=== PATIENT | male | born 1960 | race Caucasian/White ===

== ENCOUNTER 2016-06-17 12:18 | Emergency (ER) | payer BC ==
[~2016-06-17] VITALS: Ht 180.3 cm; Wt 101.3 kg
[2016-06-17 12:22] VITALS: TEMP 36.6; Ht 180.3 cm; Wt 101.3 kg
[2016-06-17] MEDS ORDERED: SODIUM CHLORIDE 0.9% 1000ML 1,000 ML IV STA (12:43)
--- NOTE | 2016-06-17 13:10 | DIAGNOSTIC IMAGING REPORT ---
CHEST ONE VIEW PORTABLE HISTORY: Short of breath. Atypical chest pain. COMPARISON: None. FINDINGS: The lungs are clear. Cardiac silhouette is normal in size. No pleural effusions. No pneumothorax. IMPRESSION: No acute process. Electronically signed by: Ivan Gannon M.D. 06/17/2016 1:08 PM Dictated Date/Time: 06/17/2016 1:07 PM
--- NOTE | 2016-06-17 13:21 | DIAGNOSTIC IMAGING REPORT ---
CT HEAD WITHOUT CONTRAST (CT) CLINICAL HISTORY: Dizziness COMPARISON STUDY: No previous studies for comparison. TECHNIQUE: Axial CT of the brain is performed from the vertex to the skull base. IV contrast was not administered for this examination. CT DOSE: 537.48 mGy.cm FINDINGS: No intra or extra-axial mass lesions are visualized. There is no CT evidence of acute cortical infarction. There is no evidence of midline shift. There is no acute hemorrhage. No calvarial fractures are visualized. There are minimal white matter hypodensities likely on a small vessel basis. There is no evidence of pathologic ventricular dilatation. There is no evidence of acute sinusitis IMPRESSION: No acute intracranial findings Electronically signed by: Tee Garzon M.D. 06/17/2016 1:19 PM Dictated Date/Time: 06/17/2016 1:18 PM
[2016-06-17 13:30] LABS: EOS % 2.7 %; HEMATOCRIT 43.1 % (42-52); LYMPH % 22.9 %; MEAN CELL VOLUME 87.1 fL (80-100); MEAN CORPUSCULAR HEMOGLOBIN 30.7 pg (25-34); MEAN CORPUSCULAR HGB CONC 35.3 g/dl (32-36); MEAN PLATELET VOLUME 10.7 fL (7.4-10.4); MONO % 7.2 %; NEUT % 66.2 %; PLATELET COUNT 187 K/uL (130-400); RED BLOOD COUNT 4.95 M/uL (4.7-6.1); WHITE BLOOD COUNT 5.12 K/uL (4.8-10.8)
[2016-06-17 13:31] LABS: BASO % 0.6 %; BASO ABS # 0.03 K/uL (0-0.2); COMPLETE YES; IG% 0.4 %; LYMPH ABS # 1.17 K/uL (1.2-3.4)
[2016-06-17 14:34] LABS: BLOOD UREA NITROGEN 17 mg/dl (7-18); BUN/CREATININE RATIO 13.2 (10-20); CALCIUM 8.4 mg/dl (8.5-10.1); CARBON DIOXIDE 24 mmol/L (21-32); CHLORIDE 109 mmol/L (98-107); CKMB/CK RATIO 0.8 (0-3.0); GLUCOSE 117 mg/dl (70-99); POTASSIUM 4.4 mmol/L (3.5-5.1); SODIUM 142 mmol/L (136-145)
[2016-06-17 15:03] VITALS: BP 152/100; PULSE 63; O2SAT 98
--- NOTE | 2016-06-17 19:04 | EMERGENCY ROOM VISIT NOTE ---
History Report prepared by Eidth: Tracy Benjamin Under the Supervision of: Dr. Salbador Anderson D.O. First contact with patient: 12:26 Chief Complaint: DIZZY Stated Complaint: DIZZINESS STIFNESS SHORTNESS OF BREATH History of Present Illness The patient is a 56 year old male who presents to the Emergency Room with complaints of a resolved episode of dizziness that occurred last evening around 1999 and lasted 10-15 seconds. He states that he had a weird feeling from his head down through his chest. The patient states that he had a similar episode occur one month ago. He states that with both episodes he developed bilateral arm and back stiffness and weakness. The patient states that with both episodes his hands were on his steering wheel, he developed the dizziness and noticed the stiffness afterwards. He states that he notices chest stiffness today as well around 0615, but is unsure if that was present last night after the dizziness episode. The patient describes his dizziness as a lightheadedness , but denies any room spinning sensation. The patient states that over the last four months he has become short of breath easily with exertion, but denies any chest pain with exertion. He denies any history of diabetes, hypertension, hyperlipidemia or previous MIs. The patient denies any difficulty ambulating. Pt denies headache, change in vision, fevers, chest pain, nausea, vomiting, diarrhea, pain with urination, and melena. Source of History: patient Onset: last evening around 1999 Position: other (global) Symptom Intensity: 10-15 seconds Quality: other (episode of dizziness) Timing: resolved Associated Symptoms: + SOB Note: Associated Symptoms: back and bilateral arm stiffness, chest stiffness, lightheadedness Review of Systems See HPI for pertinent positives & negatives. A total of 10 systems reviewed and were otherwise negative. Past Medical & Surgical Medical Problems: (1) Pneumonia Family History FH: cancer Social History Smoking Status: Never Smoker Smokeless Tobacco Use: No Alcohol Use: none Marital Status: Housing Status: lives with family Occupation Status: employed Current/Historical Medications No Active Prescriptions or Reported Meds Allergies Coded Allergies: No Known Allergies (Verified , 06/26/11) Physical Exam Vital Signs Date Time Temp Pulse Resp B/P Pulse Ox O2 Delivery O2 Flow Rate FiO2 06/17/16 15:03 63 18 152/100 98 Room Air 06/17/16 13:30 59 20 141/72 97 Room Air 06/17/16 13:10 63 06/17/16 12:31 69 16 160/98 06/17/16 12:22 36.6 80 16 161/91 96 Room Air Physical Exam GENERAL: Ambulates through hallway without difficulty, alert, well appearing, well nourished, no distress, non-toxic EYE EXAM: normal conjunctiva, PERRL and EOM's intact OROPHARYNX: no exudate, no erythema, lips, buccal mucosa, and tongue normal and mucous membranes are moist NECK: supple, no nuchal rigidity, no adenopathy, non-tender LUNGS: Clear to auscultation. Normal chest wall mechanics HEART: no murmurs, S1 normal and S2 normal ABDOMEN: abdomen soft, non-tender, normo-active bowel sounds, no masses, no rebound or guarding. BACK: Back is symmetrical on inspection and there is no deformity, no midline tenderness, no CVA tenderness. SKIN: no rashes and no bruising UPPER EXTREMITIES: upper extremities are grossly normal. Radial pulses are equal bilaterally. LOWER EXTREMITIES: No pitting edema. NEURO EXAM: Normal sensorium, cranial nerves II-XII grossly intact, normal speech, no weakness of arms, no weakness of legs. No drift. Finger to nose intact. Gross sensation intact. Rapid alternating movements of upper extremities intact. Medical Decision & Procedures ER Provider Diagnostic Interpretation: Xray results per the radiologist and my interpretation. Other results have been interpreted by the radiologist and reviewed by me. CT HEAD WITHOUT CONTRAST (CT) CLINICAL HISTORY: Dizziness COMPARISON STUDY: No previous studies for comparison. TECHNIQUE: Axial CT of the brain is performed from the vertex to the skull base. IV contrast was not administered for this examination. CT DOSE: 537.48 mGy.cm FINDINGS: No intra or extra-axial mass lesions are visualized. There is no CT evidence of acute cortical infarction. There is no evidence of midline shift. There is no acute hemorrhage. No calvarial fractures are visualized. There are minimal white matter hypodensities likely on a small vessel basis. There is no evidence of pathologic ventricular dilatation. There is no evidence of acute sinusitis IMPRESSION: No acute intracranial findings Electronically signed by: Tee Garzon M.D. 06/17/2016 1:19 PM Dictated Date/Time: 06/17/2016 1:18 PM CHEST ONE VIEW PORTABLE HISTORY: Short of breath. Atypical chest pain. COMPARISON: None. FINDINGS: The lungs are clear. Cardiac silhouette is normal in size. No pleural effusions. No pneumothorax. IMPRESSION: No acute process. Electronically signed by: Ivan Gannon M.D. 06/17/2016 1:08 PM Dictated Date/Time: 06/17/2016 1:07 PM Laboratory Results 06/17/16 13:02 Red Blood Count 4.95, Mean Corpuscular Volume 87.1, Mean Corpuscular Hemoglobin 30.7, Mean Corpuscular Hemoglobin Concent 35.3, Mean Platelet Volume 10.7, Neutrophils (%) (Auto) 66.2, Lymphocytes (%) (Auto) 22.9, Monocytes (%) (Auto) 7.2, Eosinophils (%) (Auto) 2.7, Basophils (%) (Auto) 0.6, Neutrophils # (Auto) 3.39, Lymphocytes # (Auto) 1.17, Monocytes # (Auto) 0.37, Eosinophils # (Auto) 0.14, Basophils # (Auto) 0.03 06/17/16 13:02 Test 06/17/16 13:02 06/17/16 14:53 White Blood Count 5.12 K/uL (4.8-10.8) Red Blood Count 4.95 M/uL (4.7-6.1) Hemoglobin 15.2 g/dL (14.0-18.0) Hematocrit 43.1 % (42-52) Mean Corpuscular Volume 87.1 fL (80-100) Mean Corpuscular Hemoglobin 30.7 pg (25-34) Mean Corpuscular Hemoglobin Concent 35.3 g/dl (32-36) Platelet Count 187 K/uL (130-400) Mean Platelet Volume 10.7 fL (7.4-10.4) Neutrophils (%) (Auto) 66.2 % Lymphocytes (%) (Auto) 22.9 % Monocytes (%) (Auto) 7.2 % Eosinophils (%) (Auto) 2.7 % Basophils (%) (Auto) 0.6 % Neutrophils # (Auto) 3.39 K/uL (1.4-6.5) Lymphocytes # (Auto) 1.17 K/uL (1.2-3.4) Monocytes # (Auto) 0.37 K/uL (0.11-0.59) Eosinophils # (Auto) 0.14 K/uL (0-0.5) Basophils # (Auto) 0.03 K/uL (0-0.2) RDW Standard Deviation 40.7 fL (36.4-46.3) RDW Coefficient of Variation 12.7 % (11.5-14.5) Immature Granulocyte % (Auto) 0.4 % Immature Granulocyte # (Auto) 0.02 K/uL (0.00-0.02) D-Dimer < 190 ug/L FEU (0-500) Anion Gap 9.0 mmol/L (3-11) Est Creatinine Clear Calc Drug Dose 75.1 ml/min Estimated GFR () 69.7 Estimated GFR (Non- 60.1 BUN/Creatinine Ratio 13.2 (10-20) Calcium Level 8.4 mg/dl (8.5-10.1) Total Creatine Kinase 220 U/L (39-308) Creatine Kinase MB 1.8 ng/ml (0.5-3.6) Creatine Kinase MB Ratio 0.8 (0-3.0) Chemistry Specimen Hemolysis Troponin I < 0.015 ng/ml (0-0.045) Laboratory results per my review. Medications Administered Medications (Trade) Dose Ordered Sig/Meme Route Start Time Stop Time Status Last Admin Dose Admin Sodium Chloride (Nss 1000ml) 1,000 ml @ 999 mls/hr Q1H1M STAT IV 06/17/16 12:43 06/17/16 13:43 DC 06/17/16 12:43 999 MLS/HR ECG Indication: other (dizziness) Rate (beats per minute): 64 Rhythm: sinus rhythm Findings: no ectopy, other (flipped T wave in lead 3, normal axis) Comparison ECG Date: no prior available ED Course ED COURSE: Vital signs were reviewed and showed hypertensive The patients medical record was reviewed The above diagnostic studies were performed and reviewed. ED treatments and interventions as stated above. 1228: The patient was evaluated in room C3. A complete history and physical examination was performed. 1243: Ordered Sodium Chloride 1000 ml @ 999 mls/hr IV. 1335: I reevaluated the patient and he is doing well. 1430: I had a prolonged conversation with the patient regarding his heart enzymes and how the results are not back yet. He is agreeable to stay until the first troponin comes back. It came back normal at this time. After extensive convincing, the patient allowed to have a repeat troponin drawn and states that we can call if it comes back positive. 1447: Upon reevaluation, the patient is resting comfortably. I told the patient that there is a 1-2% chance that this is his heart and he does not wish to stay for the results. I discussed my findings with the patient and he understands and agrees with the treatment plan. Based on the patients age, coexisting illnesses, exam and lab findings the decision to treat as an outpatient was made. The patient remained stable while under my care. The patient appeared well at the time of discharge. Medical Decision Differential diagnosis includes etiologies such as benign positional vertigo, dehydration, hypovolemia, anemia, tumor, infection, hypoglycemia, electrolyte abnormalities, cardiac sources, intracerebral event, toxicologic, neurologic, as well as others were entertained. Patient is a 56-year-old male who presents the ER for intermittent episodes of lightheadedness. He had one episode over a month ago and one last night. Following this episode he has felt tight in his upper extremities. He is concerned that he may be having a heart attack. He denies any exertional chest pain or new shortness of breath. No history of hypertension, hyperlipidemia, CAD or previous UT. He has no risk factors for PE. D-dimer was negative. Troponin was was negative 2. CT head was negative. EKG was nondiagnostic. He notes that his symptoms started last night prior to bed for this morning he felt that this stiffness in his arms and chest was maybe slightly worse. His troponin was initially negative. I stressed the importance of obtaining another troponin but he notes he would like to leave as he does not believe this is his heart. Explained the risk and benefits of this. He eventually allowed me to obtain another troponin and he said he would return if it did come back positive. Troponin did come back negative. I noted that if the troponin does come back negative per the heart is risk of an UT is less than 2% but he needs to follow-up within the next 48 hours with his PCP. Discussed with Pt concerning signs and symptoms to watch out for. Pt was instructed to follow up with their PCP and discussed with the patient their option to return to the ED at anytime for persistent or worsening symptoms. The appropriate anticipatory guidance and out-patient management, including indications for return to the emergency department, were explained at length to the patient and understood. Impression Primary Impression: Arm stiffness Additional Impressions: Dizziness, Chest tightness Scribe Attestation The scribe's documentation has been prepared under my direction and personally reviewed by me in its entirety. I confirm that the note above accurately reflects all work, treatment, procedures, and medical decision making performed by me. Departure Information Dispostion Home / Self-Care Prescriptions No Active Prescriptions or Reported Meds Referrals No Doctor, Assigned (PCP) Forms HOME CARE DOCUMENTATION FORM, IMPORTANT VISIT INFORMATION Patient Instructions A Signature Page, Chest Pain - [facility], ED Dizziness [facility], My [facility] Additional Instructions Please follow up with your primary care doctor with in the next 24 hours. Any worsening of your symptoms, please return to the ED immediately. This includes exertional chest pain, exertional shortness of breath, passing out, chest pain, shortness of breath, or any other concerning signs or symptoms from your stand point. You must follow up with your primary care doctor in the next 24-48 hours as this still could be your heart. We cannot completely rule this out. I did recommend staying for a complete evaluation however he preferred to leave here and we will draw a troponin and call you if it's elevated.
== END 2016-06-17 15:05 | disposition home or self-care (01) ==
LOC: C.EDB 12:22 → C.EDC 15:05
DX: M79.603 Pain in arm, unspecified (principal); R42 Dizziness and giddiness; R07.89 Other chest pain

== ENCOUNTER → 2016-07-21 | Outpatient (CLI) | payer BC ==
[2016-07-21 18:16] LABS: BASO % 0.5 %; BASO ABS # 0.03 K/uL (0-0.2); COMPLETE YES; EOS % 2.2 %; HEMATOCRIT 46.5 % (42-52); IG% 0.5 %; LYMPH % 27.3 %; MEAN CELL VOLUME 89.1 fL (80-100); MEAN CORPUSCULAR HEMOGLOBIN 30.8 pg (25-34); MEAN CORPUSCULAR HGB CONC 34.6 g/dl (32-36); MEAN PLATELET VOLUME 10.9 fL (7.4-10.4); MONO % 9.1 %; NEUT % 60.4 %; PLATELET COUNT 205 K/uL (130-400); RED BLOOD COUNT 5.22 M/uL (4.7-6.1); WHITE BLOOD COUNT 5.49 K/uL (4.8-10.8)
[2016-07-21 19:02] LABS: AST/SGOT 24 U/L (15-37); BLOOD UREA NITROGEN 25 mg/dl (7-18); BUN/CREATININE RATIO 17.7 (10-20); CARBON DIOXIDE 25 mmol/L (21-32); CHLORIDE 107 mmol/L (98-107); GLUCOSE 106 mg/dl (70-99); MAGNESIUM 2.3 mg/dl (1.8-2.4); POTASSIUM 4.3 mmol/L (3.5-5.1); SODIUM 140 mmol/L (136-145)
[2016-07-21 19:03] LABS: LYME DISEASE AB IGG NEG (NEG); LYME DISEASE AB IGM NEG (NEG)
[2016-07-21 19:11] LABS: ALB/GLOB RATIO 1.3 (0.9-2); ALKALINE PHOSPHATASE 70 U/L (45-117); ALT/SGPT 50 U/L (12-78); CHOLESTEROL 178 mg/dl (0-200); CHOLESTEROL/HDL RATIO 4.1; HDL CHOLESTEROL 43 mg/dl; LDL CHOLESTEROL CALCULATED 111 mg/dl; PROSTATE SPECIFIC ANTIGEN 0.946 ng/ml (0.000-4.000); TRIGLYCERIDES 122 mg/dl (0-150); VERY LOW DENSITY LIPOPROT CALC 24 mg/dl
[2016-07-26 12:18] LABS: EPSTEIN BARR VIR CAPSID IGG 1.19 INDEX
--- NOTE | 2016-07-26 13:28 | CODING QUERY MEDICAL NECESSITY ---
SUPPORTING DIAGNOSIS NEEDED A supporting diagnosis is required for the test/procedure performed on this patient in order for us to be reimbursed by the patient's insurance. Please provide a supporting diagnosis for the following test/procedure listed below next to the test name along with your signature. *If there is no additional diagnosis for this patient that would support the following test/procedure please document that below next to the test/procedure. Test(s)/Procedure(s) that require a supporting diagnosis: * VITAMIN D 25-HYDROXY DIAGNOSIS: * PSA DIAGNOSIS: * DOS: 07/21/16 Provider Signature: Date: Thank you Shannon García Health Information Management Once completed, please kindly fax back to [phone] For questions please call [phone]
== END | disposition home or self-care (01) ==
LOC: C.LABPVFM 08:03
PROVIDERS: ATTEND Nurse Practitioner Family
DX: Z11.59 Encounter for screening for other viral diseases (principal); E78.5 Hyperlipidemia, unspecified; R53.83 Other fatigue; Z00.00 Encounter for general adult medical examination without abnormal findings; E55.9 Vitamin D deficiency, unspecified; Z12.5 Encounter for screening for malignant neoplasm of prostate

== ENCOUNTER → 2017-08-15 | Outpatient (CLI) | payer BC ==
[2017-08-15 20:02] LABS: HEMATOCRIT 45.1 % (42-52); HEMOGLOBIN 15.7 g/dL (14.0-18.0); MEAN CELL VOLUME 88.4 fL (80-100); MEAN CORPUSCULAR HEMOGLOBIN 30.8 pg (25-34); MEAN CORPUSCULAR HGB CONC 34.8 g/dl (32-36); MEAN PLATELET VOLUME 9.9 fL (7.4-10.4); PLATELET COUNT 204 K/uL (130-400); RED CELL DISTRIBUTION WIDTH CV 12.9 % (11.5-14.5); RED CELL DISTRIBUTION WIDTH SD 41.4 fL (36.4-46.3); WHITE BLOOD COUNT 5.73 K/uL (4.8-10.8)
--- NOTE | 2017-08-15 20:05 | DIAGNOSTIC IMAGING REPORT ---
CHEST 2 VIEWS ROUTINE CLINICAL HISTORY: 57 years-old Male presenting with SHORTNESS OF BREATH, WENT TO LAB FIRST. TECHNIQUE: PA and lateral views of the chest were obtained. COMPARISON: 06/17/2016. FINDINGS: Cardiomediastinal silhouette normal. Lungs and pleural spaces clear. Degenerative changes of the thoracic spine. Upper abdomen normal. IMPRESSION: 1. No acute cardiopulmonary disease. Electronically signed by: Stas Lin M.D. 08/15/2017 8:04 PM Dictated Date/Time: 08/15/2017 8:03 PM
[2017-08-15 20:20] LABS: ALBUMIN 3.8 gm/dl (3.4-5.0); ALT/SGPT 56 U/L (12-78); AST/SGOT 31 U/L (15-37); BLOOD UREA NITROGEN 20 mg/dl (7-18); CARBON DIOXIDE 26 mmol/L (21-32); CREATININE 1.72 mg/dl (0.60-1.40); GLUCOSE 97 mg/dl (70-99); POTASSIUM 4.3 mmol/L (3.5-5.1); SODIUM 137 mmol/L (136-145)
[2017-08-15 20:31] LABS: ALKALINE PHOSPHATASE 88 U/L (45-117); TOTAL PROTEIN 7.7 gm/dl (6.4-8.2)
== END | disposition home or self-care (01) ==
LOC: C.LAB 19:20
PROVIDERS: ATTEND Family Medicine
DX: R06.02 Shortness of breath (principal); R30.0 Dysuria

== ENCOUNTER → 2017-08-24 | Outpatient (CLI) | payer BC | END | disposition home or self-care (01) | LOC: C.RC 10:59 | PROVIDERS: ATTEND Family Medicine | DX: R06.02 Shortness of breath (principal) ==

== ENCOUNTER → 2017-10-06 | Outpatient (CLI) | payer BC | END | disposition home or self-care (01) | LOC: C.LABPVFM 12:08 | PROVIDERS: ATTEND Family Medicine | DX: E55.9 Vitamin D deficiency, unspecified (principal) ==

== ENCOUNTER → 2017-10-06 | Outpatient (CLI) | payer BC ==
[2017-10-06 18:11] LABS: ALBUMIN 3.7 gm/dl (3.4-5.0); ALT/SGPT 47 U/L (12-78); AST/SGOT 24 U/L (15-37); BLOOD UREA NITROGEN 21 mg/dl (7-18); CALCIUM 8.7 mg/dl (8.5-10.1); CARBON DIOXIDE 23 mmol/L (21-32); CREATININE 1.51 mg/dl (0.60-1.40); GLUCOSE 110 mg/dl (70-99); POTASSIUM 4.3 mmol/L (3.5-5.1); SODIUM 136 mmol/L (136-145)
[2017-10-06 18:17] LABS: ALKALINE PHOSPHATASE 77 U/L (45-117); CHOLESTEROL 185 mg/dl (0-200); LDL CHOLESTEROL CALCULATED 122 mg/dl; TOTAL PROTEIN 7.5 gm/dl (6.4-8.2)
== END | disposition home or self-care (01) ==
LOC: C.LABPVFM 11:11
PROVIDERS: ATTEND Family Medicine
DX: R79.89 Other specified abnormal findings of blood chemistry (principal); Z13.220 Encounter for screening for lipoid disorders; Z12.5 Encounter for screening for malignant neoplasm of prostate

== ENCOUNTER → 2017-10-25 | Outpatient (CLI) | payer BC ==
[2017-10-25 13:08] LABS: ALBUMIN 3.8 gm/dl (3.4-5.0); BLOOD UREA NITROGEN 18 mg/dl (7-18); CALCIUM 8.7 mg/dl (8.5-10.1); CARBON DIOXIDE 25 mmol/L (21-32); CREATININE 1.44 mg/dl (0.60-1.40); GLUCOSE 109 mg/dl (70-99); PHOSPHORUS 2.2 mg/dl (2.5-4.9); SODIUM 138 mmol/L (136-145)
[2017-10-25 13:11] LABS: TRANSFERRIN 262 mg/dl (200-360)
== END | disposition home or self-care (01) ==
LOC: C.LAB1850 10:46
PROVIDERS: ATTEND Internal Medicine Rheumatology
DX: R79.89 Other specified abnormal findings of blood chemistry (principal); M62.82 Rhabdomyolysis; M79.1 Myalgia